=== PATIENT | female | born 1950 | race Caucasian/White ===

== ENCOUNTER 2016-07-12 07:07 | Outpatient (CLI) | payer MEDICARE, MEDICAID, SELFPAY ==
[~2016-07-12] VITALS: Ht 162.6 cm; Wt 45.5 kg
--- NOTE | ~2016-07-12 | CATH ---
Cardiac Diagnostic Report Demographics Patient Name CALLY Diaz Gender Female Date of 1950 Age 66 year(s) Patient Number [id number] Date of Study 07/12/2016 Visit Number [id number] Room Number G6399 [place] [id number] Ht 162.56 cm Wt 45.5 kg Referring Lesly Winston MD Primary Physician Physician Ross Norton MD Performing Lesly Winston MD Secondary Physician Physician Diagnostic Lesly Winston MD Assisting Physician Physician Interventional Physician [facility] [employer]er Physician Findings and Conclusions Diagnostic Findings and Conclusion 1 vessel CAD Patent stents Diagnostic Recommendations Medical Therapy Routine post Angioseal Procedure Description The patient was brought to the diagnostic cardiac catheterization-EP laboratory in the fasting, non-sedated state. Informed consent was obtained in the written and verbal form after the risks and benefits were explained. The patient had no further questions and agreed to proceed. The planned puncture-incision site(s) were shaved and prepped with ChloraPrep and draped in the usual sterile manner. Conscious sedation, supplemental oxygen, and pain control medications were delivered by a registered nurse under physician guidance. Surface ECG rhythm, blood pressure measurement, and pulse oximetry were monitored throughout the procedure. Arterial access. The access site was infiltrated with lidocaine. The vessel was entered with the Seldinger technique. A sheath was advanced into the vessel and used for catheter placement. Selective left coronary angiography. A catheter was advanced into the left coronary vessel ostium under Fluoroscopic guidance. Contrast was injected by hand. Images were obtained in multiple projections. Selective right coronary angiography. A catheter was advanced into the right coronary vessel ostium under fluoroscopic guidance. Contrast was injected by hand. Images were obtained in multiple projections. Left heart catheterization with ventriculography. A catheter was advanced across the aortic valve to the left ventricle under fluoroscopic guidance. Resting hemodynamics were obtained. With the catheter at the left ventricular apex, contrast was injected. Images were obtained in BRANDON projections. Post-ventriculography LV pressure was obtained. The catheter was gradually withdrawn into the aorta with continuous pressure recording. Arterial artery hemostasis was achieved. The patient was transferred to a regular nursing floor via cart accompanied by a nurse. The patient left the laboratory in stable condition. Diagnostic Cath Status: Elective Procedure Procedure Type Diagnostic procedure:Ventriculogram:, Left, Angiography:, Coronary Angios w/[facility] Indications: Positive nuclear perfusion study. The procedure was explained in detail to the patient. Risks, complications and alternative treatments were reviewed. Written consent was obtained. Medications Reviewed with Patient prior to Procedure. Angiographic Findings Dominance: Right Cardiac Arteries and Lesion Findings LMCA: Normal (0% Stenosis).Medium, normal LAD: Normal (0% Stenosis).LAD medium, normal Diagonal 1 medium, normal LCx: Normal (0% Stenosis).Circumflex medium, normal OM 1 small ok RCA: RCA large, dominant, patent stents PL small PDA small, okThere is a previous stent on Mid RCA. Lesion on Mid RCA: 40% stenosis . The lesion was previously treated with the following techniques: stent unknown type. This is in-stentrestenosis. Comments:30-40% lesion Lesion on 1st RPL: Proximal subsection.30% stenosis . Comments:20-30% lesion Coronary Tree Procedure Data Procedure Date Date: 07/12/2016Start: 08:59 AMEnd: 09:22 AM Entry Locations - Retrograde Percutaneous access was performed through the Right Femoral artery (Primary location). A 6 Fr sheath was inserted. Hemostasis was successfully obtained using Angio-Seal STS PLUS ([place]). Closure Comments: Deployed by [employer]. Procedure Medications Order and Administration + + +-------+------+ !Time !Medication !Dosage !Route ! + + +-------+------+ !07/12/2016 08:57 AM !Versed !1 mg !I.V. ! + + +-------+------+ !07/12/2016 09:00 AM !Fentanyl !25 mcg !I.V. ! + + +-------+------+ Devices Used - A6 Fr. BS JL 4 Diag. Catheterwas used for:Left coronary angiography. - A6 Fr. BS JR 4 Diag. Catheterwas used for:Right coronary angiography. - A6 Fr. BS Angled Pigtail Diag. Catheterwas used for:Left ventriculography. Contrast Material - Isovue 899005 ml Fluoroscopy Time: Diagnostic: 2:48 minutes. Total: 2:48 minutes. Fluoroscopy Dose: Diagnostic: 204 mGy. Total: 204 mGy. Estimated Blood Loss: 3 ml. Medical History Allergies - Other:(adenosine). - Other:(reclast). - Other:(Bisphosphonates, Mannitol, Adenosine, Zoledronic Acid). Risk Factors The patient risk factors include:prior PCI;treated hypercholesterolemia, hypertension, family history of premature CAD, chronic lung disease, last creatinine: 0.7 mg/dl, creatinine clearance: 56.78 ml/min, dyslipidemia, former tobacco use and prior [place] . Admission Data Admission Date: 07/12/2016 Admission Time: 07:07 AM Admit Source: Other Insurance Payors: Medicare. Admission Medications + +------+-------+ + + + + !Medication!Dosage!Times !Last !Last !Administered !Comments ! ! ! !Per Day!Delivery !Delivery ! ! ! ! ! ! !Date !Time ! ! ! + +------+-------+ + + + + !Aspirin ! ! ! ! !Yes ! ! !(any) ! ! ! ! ! ! ! + +------+-------+ + + + + !Statin ! ! ! ! !Yes ! ! !(any) ! ! ! ! ! ! ! + +------+-------+ + + + + Clinical Evaluation Leading to Procedure - The patient's CAD presentation was assessed as: Unstable angina. - The patient's anginal syndrome during the past two weeks was assessed as: Class II according to the [place] Cardiovascular Society Classification System (CCS). VA LV function assessed as:Normal. Ejection Fraction - Method: LV gram. EF%: 65. Hemodynamics Condition: Rest O2 Consumption: Estimated: 141.80Heart Rate: 80 bpm Pressures (mmHg) +-----+ + !Site !Pressure ! +-----+ + !AO !137/80 (107) ! +-----+ + !AO !139/75 (106) ! +-----+ + !LV !134/1 ,10 ! +-----+ + !LV !133/1 ,9 ! +-----+ + !LV !127/4 ,11 ! +-----+ + !LV !145/69 ,56 ! +-----+ + !AO !128/62 (93) ! +-----+ + !LV !131/2 ,13 ! +-----+ + Valve Gradients and Areas + +---------+---------+---------+ +---------+ + !Valve !Peak !Mean !Area !Index !Flow !Source ! + +---------+---------+---------+ +---------+ + !Aortic !3 !0 ! ! ! ! ! + +---------+---------+---------+ +---------+ + !Aortic !3 !0 ! ! ! ! ! + +---------+---------+---------+ +---------+ + Shunts Oxygen Values O2 Capacity 175.44 O2 Consumption 141.8 Discharge Data Discharge Date: 07/12/2016 Hospital Status: Outpatient Signatures dtt: Catrachito Grace (cardio) dtd: 07/12/16 0859 Physician Self Edit
[~2016-07-12 07:07] MED LIST: ADVAIR 500-501 EACH INH; ALBUTEROL2.5 MG/31 INH; ASPIRIN EC81 MG PO; CALTRATE 600 WI1 TAB PO; DELTASONE10 MG PO; DUONEB INH; K-TAB 10MEQ10 MEQ PO; NITROSTAT0.4 MG SL; OMEPRAZOLE40 MG PO; OXYGEN M-15 INH; PROVENTIL OR V6.7 GM INH; THERAGRAN-M1 TAB PO; ULTRAM50 MG PO; ZOCOR20 MG PO
[2016-07-12 08:01] LABS: PROTIME 10.2 SECONDS (9.6-11.1)
== END 2016-07-12 12:55 | disposition disaster alternative care site (69) ==
LOC: GPCU 07:07 → GCAT 07:07 → GPOC 14:00
PROVIDERS: Internal Medicine Interventional Cardiology
PROC: 4A023N7 Measurement of Cardiac Sampling and Pressure, Left Heart, Percutaneous Approach (ICD-10-PCS; principal; 2016-07-12)
PROC: B2111ZZ Fluoroscopy of Multiple Coronary Arteries using Low Osmolar Contrast (ICD-10-PCS; principal; 2016-07-12)
PROC: B2151ZZ Fluoroscopy of Left Heart using Low Osmolar Contrast (ICD-10-PCS; principal; 2016-07-12)
DX: I25.110 Atherosclerotic heart disease of native coronary artery with unstable angina pectoris (principal); T82.855A Stenosis of coronary artery stent, initial encounter; Y71.1 Therapeutic (nonsurgical) and rehabilitative cardiovascular devices associated with adverse incidents; J44.9 Chronic obstructive pulmonary disease, unspecified; I10 Essential (primary) hypertension; E78.00 Pure hypercholesterolemia, unspecified; I73.9 Peripheral vascular disease, unspecified; I25.2 Old myocardial infarction; I48.91 Unspecified atrial fibrillation; Z95.5 Presence of coronary angioplasty implant and graft; Z87.891 Personal history of nicotine dependence; Z79.82 Long term (current) use of aspirin; Z79.51 Long term (current) use of inhaled steroids; Z79.52 Long term (current) use of systemic steroids; Z79.899 Other long term (current) drug therapy; Z99.81 Dependence on supplemental oxygen
CPT/HCPCS: C1760; J1644; J2001; J2250; J3010; J7030

== ENCOUNTER 2016-08-24 20:11 | Inpatient (IN) | payer MEDICARE, MEDICAID ==
[~2016-08-24] VITALS: Ht 162.6 cm; Wt 43.1 kg
--- NOTE | ~2016-08-24 | HP ---
PATIENT'S NAME: MAGDALENA ALAMO [facility] AGE: 66 Y [address] ROOM: [place] [address] LOCATION: [facility] [place] ADMIT DATE: 08/25/2016 History & Physical DISCHARGE DATE: FAMILY PHYSICIAN: PHYSICIAN, UNKNOWN ATTENDING PHYSICIAN: BUNNY ANDERSON DATE OF SERVICE: ADDENDUM: Regarding the questionable pulmonary nodules in her lungs due to her previous history of being a former smoker with very severe COPD, on home oxygen certainly this raises a concern for pulmonary malignancy. Could be a primary cancer or could be metastasis and now in the setting of left hip pain and the lower back pain, always have to rule out this is not metastatic problem to the bone. Therefore, MRI will be performed in the very principal automation engineer hours due to the staff shortage in the Radiology department. The patient will be having frequent neuro checks with vital signs and also neuro checks every hour as well to make sure the patient does not have any muscle weakness in the legs or any numbness in the legs or any saddle anesthesia. Further plan depends on clinical course. Currently, the patient's only complaint is the pain only and she denies any muscle weakness or any numbness or any fecal or urinary incontinence or retention. Currently, the x-ray of the pelvis is being taken right now and will be read by the on-call [facility] team. I put a request to be read. Further plan depends on clinical course. BUNNY ANDERSON MD CC/indiana /[id number] D: [id number] T: [id number] HISTORY & PHYSICAL
--- NOTE | ~2016-08-24 | HP ---
PATIENT'S NAME: MAGDALENA ALAMO [facility] AGE: 66 Y [address] ROOM: [address] [address] LOCATION: [facility] [place] ADMIT DATE: 08/25/2016 History & Physical DISCHARGE DATE: FAMILY PHYSICIAN: PHYSICIAN, UNKNOWN ATTENDING PHYSICIAN: BUNNY ANDERSON DATE OF SERVICE: CHIEF COMPLAINT: Left hip pain with radiation to the lower back. HISTORY OF PRESENT ILLNESS: This is a 66-year-old female who says that for the last 3 to 4 days she has been having this acute onset of the left hip pain with radiation to her lower back that also radiates to her lumbar paraspinal muscle area pain, where she suspects she might have pulled a muscle but she was not sure. She denies any fall or any trauma recently, and since yesterday, the lower back pain has radiated down to her bilateral knees on an on and off fashion. She rates the pain about 3/10 in intensity and does not happen that frequently, probably happened about 1 to 3 times a day of a very brief duration. She denies any heavy exertion or any recent trauma. She denies any urinary incontinence or urinary retention or incontinence of bowel or bowel retention, and she also denies any sensation loss or any numbness or any muscle weakness in her bilateral lower extremities. She denies any severe chest pain; however, she does chronically have this very mild on and off chest pain where she had a recent cardiac catheterization back on 07/12/2016. At that time, it showed one-vessel coronary artery disease with patent stents and also EF of 65%. The patient also has a very severe COPD, on home oxygen 2 L at night and she denies any worsening shortness of breath. The main reason for the visit to the ER is because of the left hip pain with radiation to the lower back and sometimes radiates down bilaterally to anterior knees. However, she denies any fecal incontinence or urinary incontinence or any muscle weakness or any numbness in her lower extremity and also denies any urinary retention or urinary incontinence. She also denies any trauma. The patient was recently diagnosed with cholelithiasis back on 07/31/2016, it was diagnosed in [place]. She occasionally gets a biliary colic pain, but today she does not complain much of the biliary colic pain. No nausea, no vomiting. REVIEW OF SYSTEMS: As mentioned in history of present illness. All other systems were reviewed and they were negative except those mentioned in the history of present illness. PAST MEDICAL HISTORY: 1. Cholelithiasis diagnosed on 07/31/2016, followed by a medical provider in PATIENT'S NAME: MAGDALENA ALAMO [facility] AGE: 66 Y [address] ROOM: [place] [address] LOCATION: [facility] [place] ADMIT DATE: 08/25/2016 History & Physical DISCHARGE DATE: FAMILY PHYSICIAN: PHYSICIAN, UNKNOWN ATTENDING PHYSICIAN: BUNNY ANDERSON. 2. Cardiac catheterization back on 07/12/2016, showed single-vessel coronary artery disease with patent stents and EF of 65%. 3. Very severe COPD on 2 L oxygen via nasal cannula at night and also on daily p.o. prednisone 10 mg daily. 4. Coronary artery disease, status post total of six stents placed in the heart, the last one was placed in 2009 according to the patient. ALLERGIES: NO KNOWN DRUG ALLERGIES ACCORDING TO THE PATIENT. HOME MEDICATIONS: Will be reconciled in the morning. The patient does not remember. SOCIAL HISTORY: The patient was a former cigarette smoker, she quit in 2006, she used to smoke about 1 pack per day since she was 18 years old. The patient denies any alcohol or any illegal drug use. PAST SURGICAL HISTORY: 1. Status post appendectomy. 2. Status post six cardiac stents placed in the past, last one was placed in 2009. FAMILY HISTORY: Father from COPD complications at an old age, and also mother is still alive but she suffered from CABG surgery and also had a pacemaker implanted for unknown reason that the patient could not remember. PHYSICAL EXAMINATION: VITAL SIGNS: At the time of my dictation, temperature 99.5, heart rate 111, respirations 22, blood pressure 118/68, and oxygen saturation 92% on 2 L nasal cannula. GENERAL APPEARANCE: Alert and oriented x3, in no acute distress. Follows commands. Articulate and cooperative. HEENT: Pupils equally round and reactive to light. Extraocular muscles intact. Anicteric sclerae. Nasal turbinates are normal bilaterally. Moist oral mucosa. NECK: No JVD. CARDIOVASCULAR: Regular rate and rhythm. Normal S1, S2. No murmur, no rubs, no gallops. RESPIRATORY: Decreased breath sounds diffusely. No crackles, no wheezing, no rales, no rhonchi. ABDOMEN: Soft, mildly tender to deep palpation in the right upper quadrant, otherwise no pain on the left lower quadrant, bowel sounds present, no PATIENT'S NAME: MAGDALENA ALAMO [facility] AGE: 66 Y [address] ROOM: [place] [address] LOCATION: [facility] [place] ADMIT DATE: 08/25/2016 History & Physical DISCHARGE DATE: FAMILY PHYSICIAN: PHYSICIAN, UNKNOWN ATTENDING PHYSICIAN: BUNNY ANDERSON palpable mass, no hepatosplenomegaly, and soft, and nondistended. EXTREMITIES: No edema in upper or lower extremities. MUSCULOSKELETAL: She does have pain on palpation on the left hip bone area and some tenderness on the lumbar paraspinal area and very mild on the midline of the lumbar spine. The patient's muscle strength is 5/5 in bilateral lower extremity and sensation totally intact. No stiff joint. No muscle rigidity. NEUROLOGIC: Cranial nerves 2 through 12 intact. No slurred speech. No facial droop. Pronator drift negative. Babinski negative. Deep tendon reflex +2 symmetrically present in bilateral knees and also in bilateral brachial area. Muscle strength 5/5 in bilateral lower extremities and also in bilateral upper extremities. Sensation totally intact all over the body. No saddle anesthesia. RECTAL: Tone intact and normal. The tone of the muscle is intact. SKIN: No ulcer, no rash, no cyanosis. LABORATORY DATA: Troponin less than 0.04. ProBNP 180. CPK 86, CK-MB 1.4. Lipase 68. White blood cells 19.7, hemoglobin 13.6, hematocrit 41.2, MCV 93.8, platelet 420. Glucose 98, BUN 11, creatinine 0.7, sodium 140, potassium 3.9, chloride 106, CO2 of 26, calcium 8.6. Total protein 6.6, albumin 3.2, AST 23, ALT 26, alkaline phosphatase 75, total bilirubin 0.7. Magnesium 2.0. Anion gap 11.9. GFR more than 60. INR 1.04, PTT 30. D-dimer 1.01. IMAGING STUDIES: CT abdomen and pelvis with contrast on admission the preliminary report was read as cholelithiasis. CT of the chest with contrast based on the preliminary report on admission, no pulmonary embolism. There is some small nodule in the upper lung, malignancy could not be excluded. There are the preliminary reports and the official report is pending and will be read in the morning by the radiologist. EKG on admission, on 08/24/2016, at 2143 hours showed sinus tachycardia, heart rate 114 beats per minute and no acute ischemic changes. CO interval 149 milliseconds, QRS duration 68 milliseconds, QTc 380 milliseconds. The preliminary report of the CT of abdomen and pelvis with contrast on admission was read as no acute abnormality. No definite cause for symptoms identified. Cholelithiasis. No cholecystitis or biliary obstruction. No hydronephrosis or symptomatic urinary calculus. The solid organs and vasculature are normal, otherwise. Atherosclerosis. No aneurysm or acute vascular abnormality. No bowel obstruction, free fluid, free air, abscess, or diverticulitis. The appendix is not visualized. No evidence of appendicitis. PATIENT'S NAME: MAGDALENA ALAMO [facility] AGE: 66 Y [address] ROOM: [place] [address] LOCATION: [facility] [place] ADMIT DATE: 08/25/2016 History & Physical DISCHARGE DATE: FAMILY PHYSICIAN: PHYSICIAN, UNKNOWN ATTENDING PHYSICIAN: BUNNY ANDERSON Normal urinary bladder and reproductive organs. No lymphadenopathy or inflammatory changes. CT of the chest with contrast on admission based on the preliminary review was read as subcentimeter, small, noncalcified nodules in both upper lobes. Mild upper lobe predominantly emphysema. No pulmonary embolus. Subsegmental atelectasis in both lung bases. No aortic aneurysm or evidence of dissection. Normal thyroid gland. Consider followup to exclude malignancy. ASSESSMENT AND PLAN: 1. Regarding her left hip pain and lower back pain and sometimes radiating down to both knees: No saddle anesthesia. No muscle weakness. No sensation loss. No urinary or fecal incontinence or retention. No previous history of fall or trauma. However, she does have leukocytosis and of course I want to rule out that this is not a spinal cord compression and also want to rule out this is not epidural abscess or this is not septic arthritis of the left hip or osteomyelitis. I will order MRI of the cervical and thoracic and lumbar spine with and without contrast to rule out osteomyelitis, fracture, or any other abnormality. I already called the radiology department due to first cook hours, right now it is 3:19 a.m. and due to the staff shortage and also the long duration of MRI procedure it will be deferred until the 7 or 8 o'clock in the morning. Currently, the patient does not have any muscle weakness or sensation loss or any urinary or fecal incontinence or retention. The patient is in agreement with the plan. In the meantime, I will get a pelvis x-ray, three views or greater to rule out any pathological fracture on the left hip. The patient is hemodynamically stable. If the patient had osteomyelitis or septic joint, I will get the orthopedic surgeon to have a bone biopsy first before starting any antibiotics. In addition, I am going to order an ESR and CRP and also check a lactic acid and also procalcitonin to see if the patient is septic or not and to see if there is any increased inflammatory markers suggestive of infection and osteomyelitis. For now, the patient is hemodynamically stable and afebrile. Therefore, I am not going to start any antibiotics. In the event, the patient could have osteomyelitis or septic arthritis, I will delay the antibiotics as long as the patient's vital signs are stable and I should get a bone biopsy prior to starting any antibiotics. I will also get blood culture 2 sets right now as a part of the sepsis workup. In the setting of possible sepsis, I will start the patient on the IV fluids with D5 half-normal saline, 20 mEq of potassium chloride, running at 75 mL/hr for maintenance. Continue telemetry monitoring. Further plan depends on clinical course. PATIENT'S NAME: MAGDALENA ALAMO [facility] AGE: 66 Y [address] ROOM: [place] [address] LOCATION: [facility] [place] ADMIT DATE: 08/25/2016 History & Physical DISCHARGE DATE: FAMILY PHYSICIAN: PHYSICIAN, UNKNOWN ATTENDING PHYSICIAN: BUNNY ANDERSON 2. Regarding her history of cholelithiasis: The patient is not here for this reason. I will get ultrasound of the abdomen per patient's request to look at the size of the gallstone and to see if any intervention will be required and to see if there is any cholecystitis. I will not consult general surgeon at the moment given that the patient gets most of her care back in [place] especially for the cholelithiasis. The patient was told that she was not a surgical candidate due to her very severe COPD; therefore, there is no planned cholecystectomy in the near future. Continue IV fluids and pain control with IV morphine p.r.n. and also p.o. [place] p.r.n. and p.o. Tylenol p.r.n. 3. Regarding her history of coronary artery disease, status post six stents placed in the past: EKG nonischemic. Troponin negative, the first set. Keep cycling in the morning. Repeat EKG in the morning as well. Continue telemetry monitoring. No active issue. The patient is not complaining of chest pain at the moment. 4. Deep venous thrombosis prophylaxis. I will continue with compression devices for now in case the patient will require any surgical intervention depending on her MRI report and also on her clinical course. For now continue with compression devices. 5. Code status. She is a full code. Time spent in care on the day of admission 50 minutes including chart review, interviewing the patient, examining the patient, addressing all the questions and concerns that the patient had, and I went over the plan of care in detail with the patient and nurses. Further plan depends on clinical course. BUNNY ANDERSON MD CC/megl /[id number] D: [id number] T: [id number] HISTORY & PHYSICAL
--- NOTE | ~2016-08-24 | ER ---
PATIENT'S NAME: MAGDALENA ALAMO [facility] AGE: 66 Y [address] ROOM: [address] [address] LOCATION: [facility] [place] ADMIT DATE: 08/25/2016 ER/Outpatient Report DISCHARGE DATE: FAMILY PHYSICIAN: Errol Hawkins MD ATTENDING PHYSICIAN: BUNNY ANDERSON Time of Arrival: 2011 hours. Time of Evaluation: 5 hours. CHIEF COMPLAINT: This is a 66-year-old female with advanced oxygen and steroid-dependent COPD, in with complaint of epigastric pain that radiates through to her back. HISTORY OF PRESENT ILLNESS: The patient reports she is in town visiting from [place] and she began having right upper quadrant abdominal pain, epigastric pain yesterday afternoon and pain became more severe today and began radiating to her back. It is similar to previous episode of biliary colic. While she was waiting here in the waiting room to be evaluated, she then began having aching substernal chest pain and shortness of breath. PAST MEDICAL HISTORY: Significant for advanced oxygen-dependent COPD. She has coronary artery disease. She has had 6 previous stents. CURRENT MEDICATIONS: See list. REVIEW OF SYSTEMS: Otherwise, negative. SOCIAL HISTORY: She is currently a nonsmoker. She lives in [place]. PHYSICAL EXAMINATION: GENERAL: That of a thin, poorly nourished, barrel-chested female in mild respiratory distress. SKIN: Warm and dry. Color is normal. HEENT: Head, ears, eyes, nose, and throat were normal. NECK: Supple. There is no JVD. HEART: Had a regular rate and rhythm without murmur. LUNGS: She had scattered expiratory wheezes bilaterally. ABDOMEN: Soft. She had moderate epigastric and right upper quadrant tenderness. No guarding or rebound tenderness. PATIENT'S NAME: MAGDALENA ALAMO [facility] AGE: 66 Y [address] ROOM: [address] [address] LOCATION: [facility] [place] ADMIT DATE: 08/25/2016 ER/Outpatient Report DISCHARGE DATE: FAMILY PHYSICIAN: Errol Hawkins MD ATTENDING PHYSICIAN: BUNNY ANDERSON EXTREMITIES: Normal. NEUROLOGIC: Normal. LABORATORY DATA: Lipase was normal at 68. CBC revealed a markedly elevated white blood cell count at 19,000. Comprehensive metabolic profile was unremarkable. IMAGING: CT of the abdomen and pelvis revealed gallstones with no CT evidence of acute cholecystitis. MEDICAL DECISION MAKING: The patient's pain is certainly consistent with biliary colic. The elevated white blood cell count is concerning may be related to her steroids. There is no evidence laboratory jones of cholangitis and no CT evidence of acute cholecystitis. In spite of that, she will be admitted for observation for her chest pain and biliary colic. ASSESSMENT: 1. Biliary colic. 2. Chest pain/unstable angina. 3. Oxygen and steroid-dependent chronic obstructive pulmonary disease. PLAN: As outlined above. MISAEL LYMAN MD JMEKA/modl /[id number] d: t: 08/26/16 1140, OUTPATIENT REPORT
--- NOTE | ~2016-08-24 | DS ---
PATIENT'S NAME: MAGDALENA MÉNDEZ [facility] AGE: 66 Y [address] ROOM: [address] [address] LOCATION: [facility] ADMIT DATE: 08/25/2016 Discharge Summary DISCHARGE DATE: 08/27/2016 FAMILY PHYSICIAN: Errol Hawkins MD ATTENDING PHYSICIAN: Gavino Scott ATTENDING PHYSICIAN: On the day of discharge, Dr. William. CONSULTING PHYSICIAN: None. DISCHARGE DIAGNOSES: 1. Low lumbar back pain. 2. Chronic obstructive pulmonary disease, O2 dependent. 3. Coronary artery disease, status post stents x6. 4. Cholelithiasis. 5. Kyphosis of the thoracic spine. 6. Compression fractures, chronic at T5 and T6. 7. Small noncalcified nodules of the bilateral upper lobes of the lung, measuring less than 4 mm in a patient with a history of smoking. 8. Underweight with a BMI of 16.3, moderate protein-calorie malnutrition. DISCHARGE MEDICATIONS: 1. Albuterol HFA INH 2 puffs every 4 hours p.r.n. shortness of breath. 2. Albuterol sulfate via nebulizer every 4 hours p.r.n. shortness of breath. 3. Ipratropium and albuterol sulfate 1 dose q.4 hours per nebulizer. 4. ASA 81 mg daily. 5. Calcium with vitamin D 600 mg p.o. daily. 6. Multivitamin daily. 7. Advair 500/50 one puff twice daily. 8. Multivitamin 1 tablet daily. 9. Nitroglycerin 0.4 mg sublingual q.5 minutes p.r.n. chest pain. 10. Omeprazole 40 mg p.o. q.a.m. 11. Potassium chloride 10 mEq p.o. daily. 12. Prednisone 10 mg p.o. q.a.m. 13. Simvastatin 20 mg p.o. q.h.s. 14. Tramadol 50 mg p.o. q.6 hours p.r.n. pain. 15. O2 per nasal cannula, 2 L continuous. 16. Hydrocodone and acetaminophen 5/325 mg one tablet every 4 hours p.r.n. pain. 17. Lidocaine patch 1 patch apply for 12 hours during daytime and then remove. PERTINENT LABORATORY DATA: CBC upon presenting to the ER showed elevated white count of 19.7, hemoglobin 13.6, hematocrit 41.2, platelets 420, 74 segs, 10 lymphocytes. D-dimer was 1.01, which is elevated. CMP unremarkable with PATIENT'S NAME: MAGDALENA MÉNDEZ [facility] AGE: 66 Y [address] ROOM: [id number] [place], [place] [address] LOCATION: [facility] ADMIT DATE: 08/25/2016 Discharge Summary DISCHARGE DATE: 08/27/2016 FAMILY PHYSICIAN: Errol Hawkins MD ATTENDING PHYSICIAN: Gavino Scott the exception of a slightly low albumin of 3.3. Lipase was 68. ProBNP 180. Lactate 1.0. CRP elevated at 18.6. Procalcitonin was repeated on the and was then 0.07. Sedimentation rate was 25. A set of cardiac enzymes were negative. A CBC was checked again on 08/26/2016. White count had trended down to 9.6, hemoglobin 11.1, platelets 304. Blood cultures drawn on 08/25/2016 showed no growth to date on the day of discharge. UA was obtained on 08/26/2016, which was negative with the exception of 5 ketones noted. CRP was repeated on 08/27/2016 and was 10.6. Urine culture showed contaminants. PERTINENT RADIOLOGIC DATA: 1. Chest x-ray on 08/24/2016 showed no acute infiltrates. Bony osteopenia and kyphosis of the thoracic spine with mild compression deformities. 2. CT per PE protocol on 08/24/2016 showed no evidence of pulmonary embolism. Small noncalcified nodules at both upper lobes measuring less than 4 mm. It was suggested that a followup study in 6 months to be done to continue to confirm stability. There was some bibasilar atelectasis/fibrosis. 3. CT scan of the abdomen and pelvis on 08/24/2016 showed diverticulosis with no evidence of diverticulitis and moderate amount of cecum tear on the right side of the colon, and small calcified gallstones within the gallbladder. 4. An MRI of the C, T, and L-spine were obtained on 08/25/2016. Unremarkable MRI of the C-spine. The thoracic MRI showed marked kyphosis of the thoracic spine with a remote benign-appearing compression deformities at T5 and T6, and small central disk protrusion at T9-T8 with no stenosis, and lumbar MRI showed mild degenerative changes at L5-S1 with no focal disk herniation or significant stenosis. 5. A right upper quadrant ultrasound was also obtained on 08/25/2016 and did show gallstones with no sonographic evidence of acute cholecystitis. 6. The patient did undergo a one-view plain film of the left hip, which showed no evidence of fracture or dislocation. 7. Lumbar spine two-view on 08/26/2016 is compared to the MRI from 08/[address] from 08/24 and showed mild degenerative changes of the lower lumbar spine, most pronounced at L5-S1, but no acute bony fractures. HOSPITAL COURSE: Please refer to the admitting H and P dictated by Dr. Scott for more detailed outline of this patient's presentation. The patient was admitted to the Medical-Surgical Unit and placed on fall and aspiration precautions. Blood cultures were drawn along with plain films ordered at that point. Placement was placed on telemetry, and she was started on IV fluids. She was placed on sequential compression devices for DVT prophylaxis. The patient was ultimately placed on subcutaneous heparin for DVT prophylaxis and tramadol was started for pain management. Repeat lab work was followed. Dr. Ortez did see the patient in consultation on 08/25/2016. I reviewed the MRI PATIENT'S NAME: MAGDALENA MÉNDEZ [facility] AGE: 66 Y [address] ROOM: [address] [address] LOCATION: [facility] ADMIT DATE: 08/25/2016 Discharge Summary DISCHARGE DATE: 08/27/2016 FAMILY PHYSICIAN: Errol Hawkins MD ATTENDING PHYSICIAN: Gavino Scott and did not see a surgical approach to the patient's discomfort. The patient was able to walk and moved all limbs and had normal intact strength. There was some consideration given to a lumbar epidural. Ultimately, lidocaine patch and physical therapy were initiated, and ultimately since all workup and studies were negative for anything acute to explain the patient's low back pain and pain rating was down to 2/10 on 08/27/2016, it felt the patient was stable to discharge home. The patient is discharging to her own home on 08/27/2016. I believe there is a sister who will be coming to get Mrs. Méndez. She may end up staying with her for a few days. We suggested that she follow up with Dr. Hawkins's in 3- 5 days to follow up on a repeat C-reactive protein level. We reviewed the need for CT scan with contrast in 6 months to follow up on bilateral pulmonary nodules. A script was written for physical therapy to evaluate and treat as an outpatient. I reviewed how to use the Lidoderm patches and [place] as needed. The patient voiced understanding of this plan. We also said that she should not lift greater than 20 pounds at this point. She can adhere to a diet as tolerated diet. Thank you for allowing us to help care for Mrs. Méndez. Discharge of this patient took less than 30 minutes. ROSALIND VELOZ PA-C FOR MD AJNE GARCIAM/megl /[id number] CC: Errol Hawkins MD d: 08/28/16 0152 t: 09/02/16 1411, DISCHARGE SUMMARY
--- NOTE | ~2016-08-24 | ER ---
PATIENT'S NAME: MAGDALENA ALAMO [facility] AGE: 66 Y [address] ROOM: [address] [address] [place]: [facility] [place] ADMIT DATE: 08/25/2016 ER/Outpatient Report DISCHARGE DATE: FAMILY PHYSICIAN: Errol Hawkins MD ATTENDING PHYSICIAN: BUNNY ANDERSON Time of Arrival: 2011 hours. Time of Evaluation: 5 hours. CHIEF COMPLAINT: This is a 66-year-old female with advanced oxygen and steroid-dependent COPD, in with complaint of epigastric pain that radiates through to her back. HISTORY OF PRESENT ILLNESS: The patient reports she is in town visiting from [place] and she began having right upper quadrant abdominal pain, epigastric pain yesterday afternoon and pain became more severe today and began radiating to her back. It is similar to previous episode of biliary colic. While she was waiting here in the waiting room to be evaluated, she then began having aching substernal chest pain and shortness of breath. PAST MEDICAL HISTORY: Significant for advanced oxygen-dependent COPD. She has coronary artery disease. She has had 6 previous stents. CURRENT MEDICATIONS: See list. REVIEW OF SYSTEMS: Otherwise, negative. SOCIAL HISTORY: She is currently a nonsmoker. She lives in [place]. PHYSICAL EXAMINATION: GENERAL: That of a thin, poorly nourished, barrel-chested female in mild respiratory distress. SKIN: Warm and dry. Color is normal. HEENT: Head, ears, eyes, nose, and throat were normal. NECK: Supple. There is no JVD. HEART: Had a regular rate and rhythm without murmur. LUNGS: She had scattered expiratory wheezes bilaterally. ABDOMEN: Soft. She had moderate epigastric and right upper quadrant tenderness. No guarding or rebound tenderness. PATIENT'S NAME: MAGDALENA ALAMO [facility] AGE: 66 Y [address] ROOM: [address] [address] [place] [facility] [place]MIT DATE: 08/25/2016 ER/Outpatient Report DISCHARGE DATE: FAMILY PHYSICIAN: Errol Hawkins MD ATTENDING PHYSICIAN: BUNNY ANDERSON EXTREMITIES: Normal. NEUROLOGIC: Normal. LABORATORY DATA: Lipase was normal at 68. CBC revealed a markedly elevated white blood cell count at 19,000. Comprehensive metabolic profile was unremarkable. IMAGING: CT of the abdomen and pelvis revealed gallstones with no CT evidence of acute cholecystitis. MEDICAL DECISION MAKING: The patient's pain is certainly consistent with biliary colic. The elevated white blood cell count is concerning may be related to her steroids. There is no evidence laboratory jones of cholangitis and no CT evidence of acute cholecystitis. In spite of that, she will be admitted for observation for her chest pain and biliary colic. ASSESSMENT: 1. Biliary colic. 2. Chest pain/unstable angina. 3. Oxygen and steroid-dependent chronic obstructive pulmonary disease. PLAN: As outlined above. MISAEL LYMAN MD JMEKA/modl /[id number] d: 08/25/16 0511 t: 09/29/16 0454, OUTPATIENT REPORT
[2016-08-24 21:41] LABS: BASOPHIL % 0.1 %; EOSINOPHIL % 0.1 %; HEMATOCRIT 41.2 % (33.0-46.0); HEMOGLOBIN 13.6 g/dL (10.0-15.0); IMMATURE GRANULOCYTE # 0.1 K/uL (0.0-0.3); IMMATURE GRANULOCYTE % 0.4 %; LYMPHOCYTE # 2.2 K/uL (0.8-4.0); LYMPHOCYTE % 10.9 %; MCV 93.8 fl (83.0-98.0); MONOCYTE % 15.1 %; MPV 9.8 fl (9.4-12.4); NEUTROPHIL # (ANC) 14.5 K/uL (1.8-7.8); NEUTROPHIL % 73.4 %; NRBC % 0 /100WBC (0-0.00); PLATELET COUNT 420 K/uL (150-450); RBC 4.39 M/uL (3.50-5.50); RDW-CV 12.6 % (11.9-14.6)
[2016-08-24 21:43] LABS: WBC 19.7 K/uL (4.0-11.0)
[2016-08-24 21:51] LABS: INR - (THERAPEUTIC) 1.04 (0.92-1.07); PROTIME 10.9 SECONDS (9.8-11.4); PTT 30 SECONDS (25-32)
[2016-08-24 22:01] LABS: ALBUMIN 3.3 gm/dL (3.5-5.0); ALK PHOS 75 IU/L (33-138); ALT 26 IU/L (12-78); ANION GAP 11.9 (10.0-19.0); AST 23 IU/L (10-40); BLOOD UREA NITROGEN 11 mg/dL (6-24); CALCIUM 8.6 mg/dL (8.5-10.5); CHLORIDE 106 mMol/L (96-110); CO2 26 mMol/L (22-32); CPK 86 IU/L (21-215); CREATININE 0.7 mg/dL (0.5-1.1); ESTIMATED GFR (MDRD EQUATION) > 60; POTASSIUM 3.9 mMol/L (3.7-5.1); SODIUM 140 mMol/L (135-145); TOTAL BILIRUBIN 0.7 mg/dL (0.0-1.5); TOTAL PROTEIN 6.6 g/dL (6.0-8.4)
--- NOTE | 2016-08-25 05:12 | NUR ---
Pt admitted from ER around 0100 for biliary colic and COPD. Pt lives with family in [place]. She was recently hospitalized in Mid July 2016 and was diagnosed with gallstones. She started having abdominal and back pain Friday night and it continued all throughout Friday. The pain got so intense that she came in. Some nausea but no vomiting. Decreased appetite. Pt has a history of COPD which she wears 2L of O2 at home, difficulty swallowing and choking on food which she thinks is getting better, 40lb wt loss over the past 6 months, CA, heart stents x6, CAD, emphysema, osteoporosis, and GERD. In ER, WBC was 19.7, D-dimer elevate, CT scan with PE protocol was negative. Home med list is not completed because patient is unsure of home medications.
[2016-08-25 05:18] LABS: ANION GAP 14.1 (10.0-19.0); BLOOD UREA NITROGEN 11 mg/dL (6-24); CALCIUM 8.4 mg/dL (8.5-10.5); CHLORIDE 105 mMol/L (96-110); CO2 25 mMol/L (22-32); CPK 95 IU/L (21-215); CREATININE 0.6 mg/dL (0.5-1.1); ESTIMATED GFR (MDRD EQUATION) > 60; POTASSIUM 4.1 mMol/L (3.7-5.1); SODIUM 140 mMol/L (135-145)
--- NOTE | 2016-08-25 07:31 | NUR ---
Significant Event: Pt alert and oriented. Cooperative with cares. Up with 2 assist. Gait unsteady and weak. Pt has complained of back, hip and abdominal pain. Morphine given x2, norco x1. Pt thinks pain is improving. IV fluids infusing without difficulty. On cardiac diet, but has been NPO for abdominal ultrasound today. Will have MRI of back today. EKG to be done at 0800. Had pelvic x-ray completed this morning. Telemetry. Vital signs q 1 hour until 0800, then routine. Heart rate is becoming less tachycardic. Other vital signs stable. Afebrile. O2 on at 2L (pt wears that at home). Lungs clear and diminished. Shallow breaths. Tachypnea and labored breathing at times, especially with activity. Neuro checks every hour until MRI completed. Fall and aspiration precautions. Blood cultures drawn. Up to bathroom x1, missed hat. Follow up: Home med list needs completed, pt unsure of meds and pharmacy needs to be called.
--- NOTE | 2016-08-25 09:47 | NUR ---
IF UNABLE TO START ORAL DIET PT WOULD BENEFIT FROM DOBHOFF AND ENTERAL NUTRITION. REC JEVITY 1.5 @ 40 ML/HR W/ 175 ML WATER Q6 HRS.
--- NOTE | 2016-08-25 17:08 | NUR ---
Patient is alert and oriented, VSS, on 2L O2, her home dose. 1-2 assist. Was NPO this AM for an US of abdomen, only showed gallstones. MRI done this AM shows some degeneration of the L5-S1. does not believe it needs surgical intervention but will consult neuro. Tele on, has extensive heart history. NS is infusing in the R) forearm at 100ml/hr. Hope given with 0900 meds and not since, will address next time in the room. Will continue to monitor pain.
--- NOTE | 2016-08-26 03:45 | NUR ---
Significant Event: Patient up to bathroom with one assist. Has denied pain most of the shift except for a headache in which she was given Tylenol. Dr. Ortez came and saw her and said he would be back today and might consider an epidural injection but found nothing that would warrant any surgery. Has rested quietly throughout the night. Follow up: Continue to monitor.
[2016-08-26 06:35] LABS: BASOPHIL % 0.2 %; EOSINOPHIL # 0.1 K/uL (0.0-0.5); EOSINOPHIL % 1.1 %; HEMATOCRIT 34.1 % (33.0-46.0); HEMOGLOBIN 11.1 g/dL (10.0-15.0); IMMATURE GRANULOCYTE % 0.4 %; LYMPHOCYTE # 1.5 K/uL (0.8-4.0); LYMPHOCYTE % 15.3 %; MCH 30.9 pg (27.0-34.0); MCHC 32.6 gm/dL (32.0-36.5); MONOCYTE % 10.2 %; MPV 10.2 fl (9.4-12.4); NEUTROPHIL % 72.8 %; NRBC % 0 /100WBC (0-0.00); RBC 3.59 M/uL (3.50-5.50); RDW-CV 12.5 % (11.9-14.6); WBC 9.6 K/uL (4.0-11.0)
[2016-08-26 06:36] LABS: PLATELET COUNT 304 K/uL (150-450)
[2016-08-26 06:57] LABS: ALBUMIN 2.4 gm/dL (3.5-5.0); ALK PHOS 59 IU/L (33-138); ALT 18 IU/L (12-78); ANION GAP 10.7 (10.0-19.0); AST 11 IU/L (10-40); BLOOD UREA NITROGEN 11 mg/dL (6-24); CALCIUM 7.9 mg/dL (8.5-10.5); CHLORIDE 109 mMol/L (96-110); CO2 27 mMol/L (22-32); CREATININE 0.5 mg/dL (0.5-1.1); ESTIMATED GFR (MDRD EQUATION) > 60; POTASSIUM 3.7 mMol/L (3.7-5.1); SODIUM 143 mMol/L (135-145); TOTAL PROTEIN 5.4 g/dL (6.0-8.4)
[2016-08-26 07:02] LABS: TOTAL BILIRUBIN 0.3 mg/dL (0.0-1.5)
--- NOTE | 2016-08-26 13:00 | NUR ---
Introduced self/role to patient. Lives with her granddaughter. They assist her with a bath, do all the cooking and cleaning. She is working on getting a stair lift and electric wheelchair. Had oxygen already at home. Denied the need for HHC or any other DME. Added my name to her marker board, will continue to follow.
--- NOTE | 2016-08-26 17:59 | NUR ---
I HAVE REVIEWED AND AGREE WITH CHARTING BY STUDENT NURSE MIRI QUINTERO RN
--- NOTE | 2016-08-26 17:59 | NUR ---
Significant Event: PT AO. VSS ON 2L O2 PER HOME ROUTINE. TELEMETRY ON WITH NO CALLS. IVF RUNNING TO R FA, NO COMPLICATIONS. PRN NORCO, 1 TAB X2 LAST AT 1420. LIDOCAINE PATCH PLACED TO LOWER BACK. PT UP WITH 1PA, GAITBELT AND WALKER. TOLERATING CARDIAC DIET. NEED A URINE SAMPLE AND CX. HAD XRAY OF LUMBAR/SACRAL SPINE. ALARMS ON FOR SAFETY. Follow up: CONTINUE TO MONITOR
[2016-08-26 22:53] LABS: BILIRUBIN URINE NEGATIVE (NEGATIVE); BLOOD URINE NEGATIVE /UL (NEGATIVE); COLOR URINE YELLOW (YELLOW); GLUCOSE URINE NEGATIVE (NEGATIVE); KETONE URINE 5 mg/dL (NEGATIVE); LEUKOCYTES URINE NEGATIVE /UL (NEGATIVE); NITRITE URINE NEGATIVE (NEGATIVE); PROTEIN URINE NEGATIVE (NEGATIVE); SPEC GRAVITY URINE 1.015 (1.003-1.035); TURBIDITY URINE CLEAR (CLEAR); UROBILINOGEN URINE 1 mg/dL (NORMAL)
--- NOTE | 2016-08-27 05:06 | NUR ---
Shift Summary: Patient can ambulate with standby assist. On 2L O2 at all times. SOB with activity and talking. Has denied having pain all shift. Needs to sit up to eat due to aspiration recautions. On tele, no calls this shift. No determination found for her admit pain.
--- NOTE | 2016-08-27 11:05 | NUR ---
PT ON RA THIS AM BUT CANNULA IN NOSE, STATES SHE WEARS O2 @ NOC AT HOME AND PRN, STATED SHE FELT BETTER WITH IT ON, TURNED CANNULA ON TO 1L
[2016-08-27] MEDS ORDERED: NORCO 5-325 TA1 EACH PO (13:02)
[2016-08-27] MEDS ORDERED: LIDODERM1 EACH TOP (13:04)
--- NOTE | 2016-08-27 13:24 | NUR ---
D: ORDERS RECEIVED FOR THE PATIENT TO BE DISCHARGED TO HOME TODAY. I: DISMISSAL INSTRUCTIONS WERE PREPARED AND REVIEWED WITH THE PATIENT VIRTUALLY. THE FOLLOWING INFORMATION WAS DISCUSSED INCLUDING [facility]RAMES TEACHING SHEETS PROVIDED: RELIEVING BACK PAIN, SELF CARE FOR LOW BACK PAIN, NORCO, LIDOCAINE PATCH AND PREVENTING DVT. REVIEWED FOLLOW UP APPOINTMENT WITH DR. SCHILLING IN [place] AND NEW PRESCRIPTIONS SHE WILL NEED TO TAKE TO HER PHARMACY TO BE FILLED. R: THE PATIENT VERBALIZED UNDERSTANDING OF THE DISMISSAL EDUCATION AT THE TIME OF TEACHING WITH NO FURTHER QUESTIONS. P: THE ABOVE INFORMATION WAS SHARED WITH THE PRIMARY NURSE AND THE CHARGE NURSE THAT THE PATIENT'S DISMISSAL EDUCATION WAS COMPLETED. THE PATIENT IS READY FOR DISCHARGE TO THE FRONT DOOR VIA WHEEL CHAIR BY NURSING STAFF.
--- NOTE | 2016-08-27 13:39 | NUR ---
A - NUTRITION FOLLOW-UP. PT C/O CHOKING AT TIMES WHICH AFFECT APPETITE. PER RECORD, ABOUT 5# WT LOSS IN 1.5 MONTHS. PT REPORTED WT LOSS D/T BEING SICK. LABS: ALB 2.4, CRP 10.6. MEDS: ON PREDNISONE. DIET: CARDIAC W/ ENSURE ENLIVE TID. INTAKE ABOUT 50% X6 MEALS, TAKE NUTR SUPPLEMENT 50% X1. PER PT, APPETITE WAS GOOD YESTERDAY, HAD ALL OF DINNER BUT CANNOT KEEP FOOD DOWN THIS AM. DID DRINK HALF OF ENSURE ENLIVE YESTERDAY BUT NOT TODAY. NOT A BREAKFAST PERSON TOO. DISCUSSED LIKES AND DISLIKES. ENCOURAGED ORAL INTAKE TO PREVENT FURTHER WT LOSS, PT VOICED UNDERSTANDING. LEFT SOME NUTR SUP COUPONS W/ PT. EST NEEDS: [id number] KCAL, 43-56 GRAMS PROTEIN, FLUID NEEDS: 1ML/KCAL D - INADEQUATE ORAL INTAKE RELATED TO DECREASED APPETITE AND DIFFICULTY SWALLOWING AT TIMES EVIDENCED BY PO 50% X6 MEALS AND 17% WT LOSS IN 6 MONTHS. I - WILL CHANGE NUTR SUPPLEMENT TO ENSURE COMPACT BID AND CIB ONCE DAILY. M/E - GOAL: PT WILL BE ABLE TO TOLERATE >50% OF MEALS AND AT LEAST ONE ORAL SUPPLEMENT PER DAY IN 2-4 DAYS.
--- NOTE | 2016-08-27 18:03 | NUR ---
I HAVE REVIEWED AND AGREE WITH CHARTING BY STUDENT NURSE MIRI QUINTERO RN
== END 2016-08-27 15:10 | disposition disaster alternative care site (69) | DRG 552 ==
LOC: GMED 20:11 → GMSU 08-25 00:27
PROVIDERS: Emergency Medicine; Student in an Organized Health Care Education/Training Program; ADMIT Internal Medicine
DX: M54.5 Low back pain (principal); E44.0 Moderate protein-calorie malnutrition; Z99.81 Dependence on supplemental oxygen; I25.10 Atherosclerotic heart disease of native coronary artery without angina pectoris; R91.8 Other nonspecific abnormal finding of lung field; J44.9 Chronic obstructive pulmonary disease, unspecified; R79.82 Elevated C-reactive protein (CRP); M40.204 Unspecified kyphosis, thoracic region; K57.90 Diverticulosis of intestine, part unspecified, without perforation or abscess without bleeding; M48.54XS Collapsed vertebra, not elsewhere classified, thoracic region, sequela of fracture; K80.20 Calculus of gallbladder without cholecystitis without obstruction; Z95.5 Presence of coronary angioplasty implant and graft; Z87.891 Personal history of nicotine dependence; Z82.49 Family history of ischemic heart disease and other diseases of the circulatory system; Z79.52 Long term (current) use of systemic steroids
CPT/HCPCS: J1170; J1644; J2270; J2405; J7030; J7512; J7612; Q9967

== ENCOUNTER 2016-08-28 07:11 | Emergency (ER) | payer MEDICARE, MEDICAID ==
--- NOTE | ~2016-08-28 | ER ---
PATIENT'S NAME: MAGDALENA ALAMO [facility] AGE: 66 Y [address] ROOM: [place] [address] LOCATION: [facility] ADMIT DATE: 08/28/2016 ER/Outpatient Report DISCHARGE DATE: 08/28/2016 FAMILY PHYSICIAN: Errol Hawkins MD ATTENDING PHYSICIAN: Shasha Johns TIME OF ARRIVAL: 0711 hours. TIME SEEN: 0715 hours. IDENTIFICATION: A 66-year-old female. CHIEF COMPLAINT: Back pain. HISTORY OF PRESENT ILLNESS: The patient is a 66-year-old female who was just discharged from the hospital yesterday, diagnosed with low back pain despite negative MRI of her cervical, thoracic, and lumbar spine. She was treated with tramadol. Discharged on tramadol, Beaumont, and a lidocaine patch for pain. She has increasing pain today, more left-sided, does radiate down posteriorly to her knee. No numbness or tingling. No bowel or bladder problems. No other problems or concerns. PAST MEDICAL HISTORY: ALLERGIES: NO KNOWN DRUG ALLERGIES. CURRENT MEDICATIONS: 1. Albuterol 2 puffs q.4 hours p.r.n. 2. Albuterol nebulizer q.4 hours p.r.n. 3. DuoNeb q.4 hours p.r.n. 4. Aspirin 81 mg daily. 5. Calcium with vitamin D 600 mg daily. 6. Multivitamin daily. 7. Advair 500/50 one puff b.i.d. 8. Nitroglycerin p.r.n. 9. Omeprazole 40 mg q.a.m. 10. Potassium chloride 10 mEq daily. 11. Prednisone 10 mg daily. 12. Simvastatin 20 mg at h.s. PATIENT'S NAME: MAGDALENA ALAMO [facility] AGE: 66 Y [address] ROOM: [place] [id number] LOCATION: ED ADMIT DATE: 08/28/2016 ER/Outpatient Report DISCHARGE DATE: 08/28/2016 FAMILY PHYSICIAN: Errol Hawkins MD ATTENDING PHYSICIAN: Shasha Johns 13. Tramadol 50 mg q.6 hours p.r.n. pain. 14. O2 at 2 L per nasal cannula. 15. Hydrocodone and Tylenol 5/325 one q.4 hours p.r.n. 16. Lidocaine patch q.12 hours during the daytime and then removed at h.s. MEDICAL PROBLEMS: Lumbar back pain; COPD, O2 and steroid dependent; coronary artery disease; cholelithiasis; kyphosis of thoracic spine; compression fractures, chronic T5 and T6; small, noncalcified nodules of bilateral upper lobes of the lung; and moderate protein-calorie malnutrition. PRIOR SURGERIES: Appendectomy and 6 cardiac stents. SOCIAL HISTORY: The patient lives in [place]. She is here visiting her sister. Dr. Hawkins is her primary care physician. Tobacco: Quit in 2006. Alcohol use: Denies. Drug use: Denies. FAMILY HISTORY: Father secondary to COPD. Mother is alive with coronary artery disease, CABG, and pacemaker. REVIEW OF SYSTEMS: All systems reviewed and negative other than what is noted in the HPI. PHYSICAL EXAMINATION: VITAL SIGNS: Height 5 feet 4 inches, weight 100 pounds. Blood pressure 140/78, pulse 117, respirations 20, temperature 99.3, and saturation is 92% on 2 L per nasal cannula. GENERAL: A pleasant female, in mild distress. HEENT: Head: Normocephalic, atraumatic. Ears: TMs not visualized. Eyes: Pupils equal and reactive to light and accommodation. Extraocular movements intact. Nose: Mucosa pink, no lesions. Mouth: No lesions. Pharynx: Benign. NECK: Supple. No lymphadenopathy. LUNGS: Clear to auscultation. Breath sounds diminished. HEART: Regular rate and rhythm. ABDOMEN: Soft, nondistended, and nontender. SKIN: [place], warm, and dry. No lesions or rashes noted. NEUROLOGIC: The patient is alert and oriented x4. Cranial nerves 2 through 12 grossly intact. Motor strength 5/5 throughout. Sensation is intact to light touch. Equivocal straight leg raise bilaterally. The patient is tender to palpation in the lumbar paraspinal muscles to the left side. No midline tenderness. PATIENT'S NAME: MAGDALENA ALAMO [facility] AGE: 66 Y [address] ROOM: [place], [place] [address] LOCATION: ED ADMIT DATE: 08/28/2016 ER/Outpatient Report DISCHARGE DATE: 08/28/2016 FAMILY PHYSICIAN: Errol Hawkins MD ATTENDING PHYSICIAN: Shasha Johns DIAGNOSTIC DATA: MRI of the lumbar spine on August 25: Mild degenerative change at L5-S1. No focal disk herniation or stenosis. Thoracic spine: Marked kyphosis. Remote, benign-appearing compression deformities at T5 and T6. Small central disk protrusion at T8-T9 with no significant stenosis. Cervical spine MRI: Unremarkable. CT scan of the abdomen and pelvis with contrast: Diverticulosis. Moderate amount of fecal matter. Otherwise, negative. CT chest: Small, noncalcified nodules at both upper lobes, recommend followup study in 6 months. Lumbar spine, 2-view: Mild degenerative changes at L5-S1. Otherwise, negative. EMERGENCY DEPARTMENT COURSE: The patient was given Beaumont 5/325 and Valium 2 mg p.o. with improvement of her pain. IMPRESSION: Acute exacerbation of chronic lumbar back pain. PLAN: Continue Beaumont p.r.n. pain. Valium 2 mg 1/2 to 1 tablet q.8 hours p.r.n. spasm, dispensed 10, with 0 refills. No heavy lifting. Follow up with Dr. Hawkins in 2 to 3 days, follow up sooner if any problems or concerns. The patient understands and agrees, and all questions have been answered. SHASHA JOHNS MD CAR/modl /[id number] d: 08/28/16 1330 t: 08/29/16 0650, OUTPATIENT REPORT
[~2016-08-28 07:11] MED LIST changes: +LIDODERM1 EACH TOP; +NORCO 5-325 TA1 EACH PO
== END 2016-08-28 08:18 | disposition disaster alternative care site (69) ==
LOC: GMED 07:11
DX: M54.5 Low back pain (principal); G89.29 Other chronic pain; J44.9 Chronic obstructive pulmonary disease, unspecified; I25.10 Atherosclerotic heart disease of native coronary artery without angina pectoris; Z79.82 Long term (current) use of aspirin; Z90.49 Acquired absence of other specified parts of digestive tract; Z79.899 Other long term (current) drug therapy